=== PATIENT | male | born 1960 | race African-American/Black ===

== ENCOUNTER 2024-07-13 11:00 | Inpatient (IN) | payer MEDICARE, OTHER ==
[~2024-07-13] VITALS: Ht 172.7 cm; Wt 104.3 kg
[2024-07-13] MEDS ORDERED: RIVA20TA PO (11:32)
[2024-07-13] MEDS ORDERED: FURO20TA4 PO (11:32)
[2024-07-13] MEDS: IV NORMAL SALINE 1000 ML BAG IV ONE ×2 (11:45→14:21)
[2024-07-13 12:49] LABS: BASOPHILS # (AUTO) 0.1 K/UL (0.0-0.2); BASOPHILS % (AUTO) 0.8 % (0.0-2.0); EOSINOPHILS # (AUTO) 0.1 K/uL (0.0-0.7); EOSINOPHILS % (AUTO) 2.1 % (0.0-7.0); HEMATOCRIT 41.3 % (36.7-47.1); HEMOGLOBIN 13.4 g/dL (12.5-16.3); LYMPHOCYTES # (AUTO) 2.2 K/uL (0.8-4.8); LYMPHOCYTES % (AUTO) 32.3 % (20.5-51.5); MEAN CORPUSCULAR HGB CONC 32 g/dL (32.5-36.3); MEAN CORPUSCULAR VOLUME 86.5 fL (73.0-96.2); MONOCYTES # (AUTO) 0.5 K/uL (0.1-1.30); MONOCYTES % (AUTO) 7.5 % (0.0-11.0); NEUTROPHILS # (AUTO) 3.9 K/uL (1.8-8.9); NEUTROPHILS % (AUTO) 57.3 % (38.5-71.5); PLATELET COUNT (AUTO) 159 K/uL (152-348); RED BLOOD CELL COUNT(AUTO) 4.77 MIL/uL (4.06-5.63); RED CELL DISTRIBUTION WIDTH 15.8 % (12.1-16.2); WHITE BLOOD COUNT (AUTO) 6.7 K/uL (3.6-10.2)
[2024-07-13 13:06] LABS: DIFFERENTIAL COMMENT 1
[2024-07-13 13:09] LABS: CALCIUM 8.6 mg/dL (8.5-10.1); CARBON DIOXIDE 23 mmol/L (21-32); CHLORIDE 110 mmol/L (98-107); CREATININE 1.5 mg/dL (0.6-1.3); GLUCOSE 93 mg/dL (74-106); POTASSIUM 3.8 mmol/L (3.5-5.1); SODIUM SERUM 144 mmol/L (136-145); UREA NITROGEN, BLOOD 21 mg/dL (7-18)
[2024-07-13 13:26] LABS: ALANINE AMINOTRANSFERASE 15 U/L (16-63); ALKALINE PHOSPHATASE 67 U/L (50-136); ASPARTATE AMINOTRANSFERASE 21 U/L (15-37); BILIRUBIN,DIRECT < 0.1 mg/dL (0.0-0.2); BILIRUBIN,TOTAL 0.3 mg/dL (0.2-1.0); NT-PRO BNP 1654 pg/mL (0-125); TOTAL PROTEIN, SERUM 6.9 g/dL (6.4-8.2)
[2024-07-13] MEDS ORDERED: REMEDY ESSENTIAL ZINC PASTE 113 GM TP PRN (13:30)
[2024-07-13] MEDS ORDERED: MAGNESIUM HYDROXIDE 30 ML LIQUID UDC PO PRN (13:30)
[2024-07-13] MEDS ORDERED: ACETAMINOPHEN 325 MG TABLET PO PRN (13:30)
[2024-07-13] MEDS ORDERED: ONDANSETRON 4 MG/2 ML VIAL IV PRN (13:30)
[2024-07-13 14:23] LABS: *BILIRUBIN,URIN NEGATIVE (NEGATIVE); *CLARITY,URINE CLEAR (CLEAR); *COLOR,URINE YELLOW (YELLOW); *KETONES,URINE NEGATIVE (NEGATIVE); *PROTEIN,URINE 1+ (NEGATIVE); LEUKOCYTE ESTERASE ,URINE NEGATIVE (NEGATIVE); NITRITE, URINE NEGATIVE (NEGATIVE); UGLUCOSE NEGATIVE (NEGATIVE)
[2024-07-13 14:36] LABS: *BLOOD, URINE TRACE (NEGATIVE)
[2024-07-13 15:00] LABS: WBC,URINE 0-3 /HPF (0-3)
[2024-07-13 15:01] LABS: BACTERIA,URINE NONE SEEN /HPF (NONE SEEN)
[2024-07-13] MEDS ORDERED: SWABABLE VALVE TRANSFER SET EA MC ONE (15:15)
[2024-07-13] MEDS ORDERED: IV NORMAL SALINE 250 ML IV ONE (15:15)
[2024-07-13] MEDS ORDERED: IOHEXOL 350 100 ML INFUS..BTL ONE (15:15)
[2024-07-13 20:35] VITALS: BP 142/93; TEMP 97.5; O2SAT 96
[2024-07-13] MEDS: RIVAROXABAN 10 MG TABLET PO SCH (21:00)
[2024-07-13] MEDS: IV NS 1000 ML 1,000 ML IV PRN (23:05)
[2024-07-14 06:14] VITALS: BP 115/80; TEMP 97.7; O2SAT 95
[2024-07-14 06:38] LABS: BASOPHILS % (AUTO) 0.7 % (0.0-2.0); EOSINOPHILS # (AUTO) 0.2 K/uL (0.0-0.7); EOSINOPHILS % (AUTO) 3.6 % (0.0-7.0); HEMATOCRIT 37.8 % (36.7-47.1); HEMOGLOBIN 12.3 g/dL (12.5-16.3); LYMPHOCYTES # (AUTO) 1.8 K/uL (0.8-4.8); LYMPHOCYTES % (AUTO) 34.9 % (20.5-51.5); MEAN CORPUSCULAR HEMOGLOBIN 27.9 uug (23.8-33.4); MEAN CORPUSCULAR HGB CONC 33 g/dL (32.5-36.3); MEAN CORPUSCULAR VOLUME 85.9 fL (73.0-96.2); MONOCYTES # (AUTO) 0.4 K/uL (0.1-1.30); MONOCYTES % (AUTO) 8.3 % (0.0-11.0); NEUTROPHILS # (AUTO) 2.7 K/uL (1.8-8.9); NEUTROPHILS % (AUTO) 52.5 % (38.5-71.5); PLATELET COUNT (AUTO) 142 K/uL (152-348); RED CELL DISTRIBUTION WIDTH 16.2 % (12.1-16.2); WHITE BLOOD COUNT (AUTO) 5.2 K/uL (3.6-10.2)
[2024-07-14 06:41] LABS: DIFFERENTIAL COMMENT 1
[2024-07-14 07:14] LABS: CALCIUM 8.1 mg/dL (8.5-10.1); CREATININE 1.3 mg/dL (0.6-1.3); MAGNESIUM 1.8 mg/dL (1.8-2.4); POTASSIUM 3.6 mmol/L (3.5-5.1)
[2024-07-14] MEDS ORDERED: LISI-782 PO (10:05)
[2024-07-14] MEDS ORDERED: TIZA-180 PO (10:05)
[2024-07-14] MEDS ORDERED: ZOLP10TA2 PO (10:05)
[2024-07-14] MEDS ORDERED: EMTR1TAB14 PO (10:05)
[2024-07-14] MEDS ORDERED: METO100T14 PO (10:05)
[2024-07-14] MEDS ORDERED: DOLU50TA PO (10:05)
[2024-07-14] MEDS ORDERED: OLAN10TA73 PO (10:05)
[2024-07-14] MEDS ORDERED: SACU1TAB PO (10:05)
[2024-07-14 19:58] VITALS: BP 135/67; TEMP 98.5; O2SAT 95
[2024-07-15 15:44] VITALS: BP 151/100; TEMP 98.4; O2SAT 100
[2024-07-15] MEDS: CLONIDINE HCL 0.1 MG TABLET PO PRN (18:51)
[2024-07-15 20:57] VITALS: BP 152/84; TEMP 97.7; O2SAT 98
[2024-07-16 07:29] VITALS: BP 140/95; TEMP 97.8; O2SAT 97
[2024-07-16] MEDS ORDERED: Medication Not On Formulary EA (Zolpidem Tartrate (Ambien) 10 MG) PO PRN (07:30)
[2024-07-16] MEDS ORDERED: Medication Not On Formulary EA (Tizanidine Hcl 2 MG) PO PRN (07:30)
[2024-07-16 08:02] LABS: CALCIUM 8.1 mg/dL (8.5-10.1); CREATININE 1.2 mg/dL (0.6-1.3); POTASSIUM 3.9 mmol/L (3.5-5.1)
[2024-07-16 09:00] VITALS: BP 145/110; TEMP 98.2; O2SAT 98
[2024-07-16] MEDS ORDERED: OLANZAPINE 10 MG PO SCH (09:00)
[2024-07-16] MEDS ORDERED: Medication Not On Formulary EA (Dolutegravir Sodium (Tivicay) 50 MG) PO SCH (09:00)
[2024-07-16] MEDS ORDERED: Medication Not On Formulary EA (Metoprolol Tartrate (Lopressor) 100 MG) PO SCH (09:00)
[2024-07-16] MEDS ORDERED: ZOLPIDEM 5 MG TABLET PO PRN (09:15)
[2024-07-16] MEDS ORDERED: TIZANIDINE HCL 4 MG TABLET PO PRN (09:15)
[2024-07-16] MEDS: LISINOPRIL 5 MG TABLET PO SCH (09:40)
[2024-07-16] MEDS: FUROSEMIDE 20 MG TABLET PO SCH (09:41)
[2024-07-16 09:42] VITALS: BP 145/110
[2024-07-16] MEDS: RILPIVIRINE PO SCH (09:42)
[2024-07-16] MEDS: TIVICAY 50 MG PO SCH (09:42)
[2024-07-16] MEDS: [UNRECOGNIZED DRUG - OTHER] PO SCH (09:42)
[2024-07-16] MEDS: [UNRECOGNIZED DRUG - OTHER] PO SCH (09:42)
[2024-07-16] MEDS: ENTRESTO PO SCH (09:42)
[2024-07-16] MEDS: EMTRICITABINE PO SCH (09:42)
[2024-07-16] MEDS: METOPROLOL TARTRATE 50 MG TABLET PO SCH (09:42)
[2024-07-16] MEDS: TENOFOVIR ALAFENAMIDE PO SCH (09:42)
[2024-07-16] MEDS: [UNRECOGNIZED DRUG - OTHER] PO SCH (09:42)
[2024-07-16] MEDS: OLANZAPINE 5 MG TABLET PO SCH (09:47)
== END 2024-07-16 16:30 | DRG 682 ==
LOC: ER 11:00 → MEDSURG3 20:05 → MEDSURG1 07-15 06:48
PROVIDERS: ADMIT Internal Medicine; ATTEND Internal Medicine
PROC: 05H933Z Insertion of Infusion Device into Right Brachial Vein, Percutaneous Approach (ICD-10-PCS; principal; 2024-07-13)
DX: N17.0 Acute kidney failure with tubular necrosis (principal); G93.41 Metabolic encephalopathy; E86.0 Dehydration; E66.9 Obesity, unspecified; Z68.35 Body mass index [BMI] 35.0-35.9, adult; D64.9 Anemia, unspecified; I48.91 Unspecified atrial fibrillation; N18.9 Chronic kidney disease, unspecified; Z79.01 Long term (current) use of anticoagulants; Z79.899 Other long term (current) drug therapy; E27.9 Disorder of adrenal gland, unspecified; F31.9 Bipolar disorder, unspecified; I50.9 Heart failure, unspecified; Z98.890 Other specified postprocedural states
CPT/HCPCS: 36415; 70450; 71045; 71250; 83605; 83735; 84100; 84484; 85025; 87040; 93307; G0378; J7040; Q9967